=== PATIENT | female | born 1990 | race Hispanic/Latino ===

== ENCOUNTER 2017-11-08 18:15 | Emergency (ER) | payer SELFPAY ==
[~2017-11-08] VITALS: Ht 160 cm; Wt 61.2 kg
[2017-11-08 20:04] LABS: BASOPHILS % 0.3 % (0.0-1.0); EOSINOPHILS # (AUTO) 0.2 (0.0-0.4); EOSINOPHILS % 1.1 % (0.0-6.0); HEMATOCRIT 32.4 % (34.2-44.1); HEMOGLOBIN 11.3 g/dL (12.0-16.0); LYMPHOCYTES # (AUTO) 2.2 (1.0-3.2); LYMPHOCYTES % 15.8 % (18.0-39.1); MEAN CORPUSCULAR HEMOGLOBIN 31.7 pg (28-32); MEAN CORPUSCULAR HGB CONC 34.9 g/dL (31-35); MONOCYTES # (AUTO) 0.6 (0.2-0.8); NEUTROPHILS % 78.4 % (38.7-80.0); PLATELET COUNT 263 x10e3/uL (140-360); RED BLOOD COUNT 3.56 x10e6/uL (3.6-5.1); RED CELL DISTRIBUTION WIDTH 12.1 % (11.7-14.4)
--- NOTE | 2017-11-08 21:35 | Diagnostic Imaging Report ---
EXAMINATION: Head CT without contrast. HISTORY:Status post fall. COMPARISON:None. TECHNIQUE: Multidetector axial images were obtained from the foramen magnum to the vertex without contrast. The images were reconstructed using brain and bone algorithms. Thin section brain images were reformatted into coronal and sagittal planes. Dose modulation, iterative reconstruction, and/or weight based adjustment of the mA/kV was utilized to reduce the radiation dose to as low as reasonably achievable. Intravenous contrast: None IMAGE QUALITY: Acceptable. FINDINGS: Skull/scalp: No lytic or blastic. lesions. No surgical changes. Parenchyma: No abnormal density. No acute hemorrhage, mass or acute major vascular territorial infarct. Arteries: No density suggestive of thrombosis. Dural sinuses: No abnormal density suggestive of thrombosis. Ventricles: No hydrocephalus or displacement. Extra-axial spaces: No abnormal density. Brain volume: Normal for age. Craniocervical junction: No mass, Chiari malformation, or basilar invagination. Sella: No mass. Paranasal/mastoid sinuses: Imaged portions unremarkable. IMPRESSION: No intracranial abnormality. Signed by: Dr. Maya Marie M.D. on 11/08/2017 9:32 PM
--- NOTE | 2017-11-08 21:39 | Diagnostic Imaging Report ---
History: Status post fall. Comparison studies: None Technique: Axial images were obtained through the cervical region.. Coronal and sagittal images reconstructed from the axial data. Dose modulation, iterative reconstruction, and/or weight based adjustment of the mA/kV was utilized to reduce the radiation dose to as low as reasonably achievable. Intravenous contrast: None Findings: Fractures: None. Soft tissue injuries: None. Atlantoaxial articulation: Intact. Alignment: Loss of normal cervical lordosis is a either positional or due to muscle spasm.. No scoliosis. Cervicomedullary junction: No abnormalities. The foramen magnum is patent. Soft tissues: No abnormalities. Vertebrae: No fractures, infection or neoplasm. Degenerative changes: None. IMPRESSION: 1. No acute cervical spine fracture/dislocation. Loss of normal cervical lordosis is either positional or due to muscle spasm. 2. Ligament, spinal cord and or vascular abnormalities cannot be excluded on the basis of this examination. Signed by: Dr. Maya Marie M.D. on 11/08/2017 9:36 PM
[2017-11-08] MEDS ORDERED: CYCLOBENZAPRINE5 MG PO (22:42)
[2017-11-08 22:43] VITALS: BP 115/67
--- OUTSIDE RECORDS SUMMARY | 2017-12-22 03:35 | XMS REPORT ---
Author Author [facility] Address Unknown Phone Unavailable Care Team Providers Care Assistant To The Dean Name Role Phone JERRI KING Unavailable Unavailable Problems This patient has no known problems. Allergies, Adverse Reactions, Alerts This patient has no known allergies or adverse reactions. Medications This patient has no known medications. Encounters Start Date/Time End Date/Time Encounter Type Admission Type Attending Clinicians Care Facility Care Department Encounter ID 2017-11-08 09:58:48 2017-11-08 09:58:48 Emergency [facility] [id number] Results Test Description Test Time Test Comments Text Results Atomic Results Result Comments CT CERVICAL SPINE WO 2017-11-08 21:32:00 [facility] [address] [place] [address] Patient Name: MICHELLE MCKEON MR #: [id number] : 1990 Age/Sex: 26/F Req #: [id number] Adm Physician: Ordered by: EDMAR WONG LICENSING SPECIALIST Report #: [id number] Location: ER Room/Bed: ___ Procedure: [id number] CT/CT CERVICAL SPINE WO Exam Date: 11/08/17 Exam Time: 2052 REPORT STATUS: Signed History: Status post fall. Comparison studies: None Technique: Axial images were obtained through the cervical region.. Coronal and sagittal images reconstructed from the axial data. Dose modulation, iterative reconstruction, and/or weight based adjustment of the mA/kV was utilized to reduce the radiation dose to as low as reasonably achievable. Intravenous contrast: None Findings: Fractures: None. Soft tissue injuries: None. Atlantoaxial articulation: Intact. Alignment: Loss of normal cervical lordosis is a either positional or due to muscle spasm.. No scoliosis. Cervicomedullary junction: No abnormalities. The foramen magnum is patent. Soft tissues: No abnormalities. Vertebrae: No fractures, infection or neoplasm. Degenerative changes: None. IMPRESSION: 1. No acute cervical spine fracture/dislocation. Loss of normal cervical lordosis is either positional or due to muscle spasm. 2. Ligament, spinal cord and or vascular abnormalities cannot be excluded on the basis of this examination. Signed by: Dr. Maya Marie M.D. on 11/08/2017 9:36 PM Dictated By: MAYA MARIE MD 35 Transcribed By: COURTNEY on 11/08/172135 COPY TO: EDMAR WONG NP CT BRAIN WO 2017-11-08 21:29:00 [place] [address] Patient Name: MICHELLE MCKEON MR #: [id number] : 1990 Age/Sex: 26/F Req #: [id number] Adm Physician: Ordered by: EDMAR WONG NP Report #: [id number] Location: ER Room/Bed: Procedure: [id number] CT/CT BRAIN WO Exam Date: 11/08/17 Exam Time: 2052 REPORT STATUS: Signed EXAMINATION: Head CT without contrast. HISTORY:Status post fall. COMPARISON:None. TECHNIQUE: Multidetector axial images were obtained from the foramen magnum to the vertex without contrast. The images were reconstructed using brain and bone algorithms. Thin section brain images were reformatted into coronal and sagittal planes. Dose modulation, iterative reconstruction, and/or weight based adjustment of the mA/kV was utilized to reduce the radiation dose to as low as reasonably achievable. Intravenous contrast: None IMAGE QUALITY: Acceptable. FINDINGS: Skull/scalp: No lytic or blastic. lesions. No surgical changes. Parenchyma: No abnormal density. No acute hemorrhage, mass or acute major vascular territorial infarct. Arteries: No density suggestive of thrombosis. Dural sinuses: No abnormal density suggestive of thrombosis. Ventricles: No hydrocephalus or displacement. Extra-axial spaces: No abnormal density. Brain volume: Normal for age. Craniocervical junction: No mass, Chiari malformation, or basilar invagination. Sella: No mass. Paranasal/ mastoid sinuses: Imaged portions unremarkable. IMPRESSION: No intracranial abnormality. Signed by: Dr. Maya Marie M.D. on 2017 9:32 PM Dictated By: MAYA MARIE MD 31 Transcribed By: COURTNEY on 11/08/172131 COPY TO: EDMAR WONG NP
--- OUTSIDE RECORDS SUMMARY | 2017-12-22 03:35 | XMS REPORT | Clinical Summary ---
Author Author [facility] Organization [facility] Address Unknown Phone Unavailable Care Team Providers Care Pharmacy Care Coordinator Name Role Phone PCP Unavailable Allergies Active Allergy Reactions Severity Noted Date Comments Morphine Nausea and Vomiting 11/08/2017 Current Medications Prescription Sig. Disp. Refills Start End Date Status Date VITAMINS WITH one tab daily Active MINERALS 28 MG-0.8 MG TAB FERROUS SULFATE 325 MG take 1 tablet (325 mg) by Active (65 MG IRON) TAB oral route daily pyridoxine (VITAMIN B-6) Take 1 tablet by mouth 30 tablet 0 09/26/19 Active 50 mg tabletIndications: daily. 14 Hyperemesis gravidarum ibuprofen (MOTRIN) 600 mg Take 1 tablet by mouth 30 tablet 0 11/09/19 Active tabletIndications: every 8 hours as needed 18 Vaginal bleeding, Pelvic for Pain With food. pain Active Problems Problem Noted Date Pelvic pain in 09/25/2013 UTI in 09/25/2013 Hyperemesis gravidarum 09/25/2013 History of gestational diabetes 06/19/2009 Vaginal bleeding Encounters Date Type Specialty Care Team Description 11/08/2017 Emergency Emergency Medicine Ted Nichols MD Vaginal bleeding (Primary Dx); Pelvic pain after 11/07/2016 Immunizations Name Dates Previously Given Next Due Tdap Tetanus, diphtheria, 05/08/2009 acellular pertussis Vaccine Family History Medical History Relation Name Comments Diabetes Father Diabetes Mother Relation Name Status Comments Father Mother Social History Tobacco Use Types Packs/Day Years Used Date Never Smoker Alcohol Use Drinks/Week oz/Week Comments No Sex Assigned at Date Recorded Not on file Last Filed Vital Signs Vital Sign Reading Time Taken Blood Pressure 118/70 11/08/2017 11:25 AM CDT Pulse 89 11/08/2017 11:25 AM CDT Temperature 36.7 C (98 F) 11/08/2017 11:25 AM CDT Respiratory Rate 16 11/08/2017 11:25 AM CDT Oxygen Saturation 100% 11/08/2017 11:25 AM CDT Inhaled Oxygen - - Concentration Weight - - Height - - Body Mass Index - - Plan of Treatment Health Maintenance Due Date Last Done Comments Cervical Cancer Scrn (3 2010 Yrs) IMM Influenza Seasonal 12/19/2017 Oct to May (>/=19 yrs) Procedures Procedure Name Priority Date/Time Associated Diagnosis Comments BMP POC Routine 11/08/2017 Results for this 9:21 AM CDT procedure are in the results section. TYPE AND SCREEN STAT 11/08/2017 9:05 AM CDT CBC/DIFF STAT 11/08/2017 Results for this 9:05 AM CDT procedure are in the results section. HIV-1/HIV-2 ROUTINE STAT 11/08/2017 Results for this SCREENING 9:05 AM CDT procedure are in the results section. UA CHEMISTRIES STAT 11/08/2017 Results for this 9:05 AM CDT procedure are in the results section. TEST STAT 11/08/2017 Results for this 9:05 AM CDT procedure are in the results section. after 11/07/2016 Results * BMP POC (11/08/2017 9:21 AM) CO2 POC 24 21 - 32 mmol/L [facility] 1 Chloride POC 102 98 - 107 mmol/L [facility] 1 Potassium POC 4.2 3.50 - 5.10 mmol/L [facility] 1 Sodium POC 138 136 - 145 mmol/L [facility] 1 Glucose POC 105 74 - 106 mg/dL [facility] 1 Urea Nitrogen POC 16 7 - 18 mg/dL [facility] 1 Creatinine POC 0.6 0.6 - 1.3 mg/dL [facility] 1 Calcium Ionized POC 1.16 1.15 - 1.29 mmol/L [facility] 1 Hemoglobin POC 10.5 (L) 12.0 - 16.0 g/dL [facility] 1 Hematocrit POC 31.0 (L) 37.0 - 47.0 % [facility] 1 GFR, Estimated >60 mL/min/1.73 m2 [facility] 1 GFR, Estim, Afr-Am >60 mL/min/1.73 m2 [facility] 1 Performing Organization Address City/State/Zipcode Phone Number [facility] * HIV-1/HIV-2 ROUTINE SCREENING (11/08/2017 9:05 AM) HIV-1/HIV-2 Negative NEG [facility] 3 Performing Organization Address [facility] Phone Number [facility] * UA CHEMISTRIES (11/08/2017 9:05 AM) Color Red [facility] 3 Clarity Bloody [facility] 3 Results may be spuriously positive due to bloody specimen Spec [place] 1.027 1.001 - 1.035 [facility] 3 pH 6.0 5 - 8 [facility] 3 Protein 2+ (A) NEG [facility] 3 Glucose Negative NEG [facility] 3 Ketone Negative NEG [facility] 3 Bilirubin Negative NEG [facility] 3 Nitrate Negative NEG [facility] 3 Urobilinogen <1.0 0.2 - 1.0 EU/dL [facility] 3 Leukocyte Negative NEG [facility] 3 Blood 3+ (A) NEG [facility] 3 RBC >182 (H) 0 - 4 /HPF [facility] 3 Specimen Urine Performing Organization Address [facility] Phone Number [facility] * TEST (11/08/2017 9:05 AM) Negative [facility] 3 Specimen Urine Performing Organization Address [facility] Phone Number [facility] * CBC/DIFF (11/08/2017 9:05 AM) WBC 7.6 4.5 - 11.0 K/uL [facility] 2 RBC 3.29 (L) 4.20 - 5.40 M/uL [facility] 2 Hemoglobin 10.0 (L) 12.0 - 16.0 g/dL [facility] 2 Hematocrit 30.7 (L) 37.0 - 47.0 % [facility] 2 MCV 93 (H) 82 - 92 fL [facility] 2 MCH 30.4 27.0 - 32.0 pg [facility] 2 MCHC 32.6 32.0 - 36.0 g/dL [facility] 2 RDW 41.2 36.4 - 46.3 fL [facility] 2 Platelet 229 150 - 400 K/uL [facility] 2 Mean Platelet Volume 11.7 9.4 - 12.4 fL [facility] 2 Percent NRBC 0.0 [facility] 2 Absolute NRBC 0.00 [facility] 2 Neutrophil 65.1 34.0 - 70.0 % [facility] 2 Lymphocyte 27.0 20.0 - 50.0 % [facility] 2 Monocyte 4.7 (L) 5.0 - 12.0 % [facility] 2 Eosinophil 2.5 0.7 - 5.0 % [facility] 2 Basophil 0.4 0.1 - 1.2 % [facility] 2 Pct Immat Gran 0.3 0.0 - 0.5 [facility] 2 Neutrophil, Abs 4.95 1.56 - 6.13 K/uL [facility] 2 Lymphocyte, Abs 2.05 1.18 - 3.74 K/uL [facility] 2 Monocyte, Abs 0.36 0.24 - 0.36 K/uL [facility] 2 Eosinophil, Abs 0.19 0.04 - 0.36 K/uL [facility] 2 Basophil, Abs 0.03 0.01 - 0.08 K/uL [facility] 2 Absol Immat Gran 0.02 0.00 - 0.03 K/uL [facility] 2 Specimen Blood Performing Organization Address City/State/Zipcode Phone Number MISYS [facility] 2 after 11/07/2016
== END 2017-11-08 23:00 | disposition home or self-care (01) ==
LOC: ER 18:15
DX: N93.8 Other specified abnormal uterine and vaginal bleeding (principal); S00.03XA Contusion of scalp, initial encounter; S16.1XXA Strain of muscle, fascia and tendon at neck level, initial encounter; W01.0XXA Fall on same level from slipping, tripping and stumbling without subsequent striking against object, initial encounter
CPT/HCPCS: 36415; 70450; 72125; 84702; 85025; 99284